=== PATIENT | male | born 1975 | race American Indian/Alaskan Native ===

== ENCOUNTER 2022-02-03 23:43 | Emergency (ER) | payer BC ==
[2022-02-04] MEDS ORDERED: fentaNYL 100 MCG/2 ML INJ IV ONE ×2 (00:10→02:43)
[2022-02-04] MEDS ORDERED: ONDANSETRON 4 MG/2 ML INJ IV ONE (00:11)
[2022-02-04] MEDS ORDERED: SODIUM CHLORIDE 0.9% 1000 ML 1,000 ML IV ONE ×2 (00:14→04:16)
--- NOTE | 2022-02-04 00:17 | Emergency Department Report ---
HPI - General Chief Complaint: Hyperglycemia Time Seen by Provider: 02/04/22 00:02 - [facility] HPI: Room 7 The patient is a 46-year-old male present with chief complaint of bilateral foot pain. Patient states he has had pain in the soles of his feet and toes for the past month. Patient states he feels like he is walking on needles at times. Patient denies history of fever or sores on the feet. Patient currently gives his pain a score of 9/10. ED Past Medical Hx - Past Medical History Previous Medical History?: Yes Hx Diabetes: Yes - Surgical History Past Surgical History?: No Additional Surgical History: Eye surgery - Family History Family history: no significant - Social History Smoking Status: Current Every Day Smoker (1/3 pack/day) Substance Use Type: None (Denies illicit drug use) - Medications Home Medications: Home Medications Medication Instructions Recorded Confirmed Last Taken Type Gabapentin 100 mg PO Q8HR #90 capsule 02/04/22 Unknown Rx HYDROcodone/APAP 5-325 [[place]idge 1 - 2 each PO Q6HR PRN #14 tablet 02/04/22 Unknow n Rx 5/325] ED Review of Systems ROS: Stated complaint: LEG PAIN Other details as noted in HPI Constitutional: denies: fever Eyes: denies: eye pain ENT: denies: throat pain Respiratory: no symptoms reported Cardiovascular: denies: chest pain Endocrine: no symptoms reported Gastrointestinal: denies: abdominal pain Genitourinary: denies: dysuria Musculoskeletal: denies: back pain Neurological: paresthesias Physical Exam - Physical Exam Vital Signs: Vital Signs 02/03/22 23:50 Temperature 98 F Pulse Rate 110 H Respiratory 18 Rate Blood Pressure 124/82 O2 Sat by Pulse 99 Oximetry Physical Exam: GENERAL: The patient is well-developed well-nourished male lying on stretcher not appearing to be in acute distress. [] HEENT: Normocephalic. Atraumatic. Extraocular motions are intact. NECK: Supple. Trachea midline CHEST/LUNGS: There is no respiratory distress noted. HEART/CARDIOVASCULAR: Regular. There is no tachycardia. 2+ DPs bilaterally SKIN: There is no rash. There is no edema. There is no diaphoresis. NEURO: The patient is awake, alert, and oriented. The patient is cooperative. The patient has no focal neurologic deficits. The patient has normal speech. GCS 15 There is no evidence of acute injury. ED Course Vital Signs 02/03/22 23:50 Temperature 98 F Pulse Rate 110 H Respiratory 18 Rate Blood Pressure 124/82 O2 Sat by Pulse 99 Oximetry - Reevaluation(s) Reevaluation #1: 02/04/22 04:03 D stick 271 ED Medical Decision Making - Lab Data Result diagrams: 02/04/22 00:32 02/04/22 00:32 Laboratory Tests 02/04/22 02/04/22 02/04/22 00:32 00:32 00:32 WBC 8.4 RBC 4.79 Hgb 13.6 Hct 40.1 MCV 84 MCH 28 MCHC 34 RDW 12.9 L Plt Count 283 Lymph % (Auto) 39.3 H Winston % (Auto) 4.5 Eos % (Auto) 1.0 Baso % (Auto) 0.5 Lymph # (Auto) 3.3 Winston # (Auto) 0.4 Eos # (Auto) 0.1 Baso # (Auto) 0.0 Seg Neutrophils % 54.7 Seg Neutrophils # 4.6 VBG pH 7.387 Sodium 130 L Potassium 4.6 Chloride 90.8 L Carbon Dioxide 26 Anion Gap 18 BUN 25 H Creatinine 1.1 Estimated GFR > 60 BUN/Creatinine Ratio 23 Glucose 563 H* Calcium 9.4 - Differential Diagnosis Neuropathy, DKA, hyperglycemia Critical care attestation.: If time is entered above; I have spent that time in minutes in the direct care of this critically ill patient, excluding procedure time. ED Disposition Clinical Impression: Peripheral neuropathy, Hyperglycemia Disposition: HOME / SELF CARE / HOMELESS Is pt being admited?: No Does the pt Need Aspirin: No Condition: Stable Instructions: Peripheral Neuropathy, Hyperglycemia, [id number] Additional Instructions: Return to the emergency department should you develop worsening symptoms, inability to tolerate food or liquids, high fever or any other concerns Prescriptions: Gabapentin 100 mg PO Q8HR #90 capsule HYDROcodone/APAP 5-325 [Cl[place]idge 5/325] 1 - 2 each PO Q6HR PRN #14 tablet PRN Reason: Pain Referrals: JOSEPH WHITE MD [Staff Physician] - 3-5 Days (Dr. White is a neurologist. Please follow-up with him for further evaluation) Time of Disposition: 05:14
[2022-02-04 00:51] LABS: Basophils % (Auto) 0.5 % (0.0-1.8); Eosinophils # (Auto) 0.1 K/mm3 (0.0-0.4); Hematocrit 40.1 % (35.5-45.6); Hemoglobin 13.6 gm/dl (11.8-15.2); Lymphocytes # (Auto) 3.3 K/mm3 (1.2-5.4); Lymphocytes % (Auto) 39.3 % (13.4-35.0); Mean Corpuscular HGB Conc 34 % (32-34); Mean Corpuscular Volume 84 fl (84-94); Monocytes # (Auto) 0.4 K/mm3 (0.0-0.8); Monocytes % (Auto) 4.5 % (0.0-7.3); Platelet Count 283 K/mm3 (140-440); Red Blood Count 4.79 M/mm3 (3.65-5.03); Red Cell Distribution Width 12.9 % (13.2-15.2)
[2022-02-04 01:08] LABS: BUN/Creatinine Ratio 23; Blood Urea Nitrogen 25 mg/dL (9-20); Calcium 9.4 mg/dL (8.4-10.2); Hemolysis Index 1
[2022-02-04] MEDS ORDERED: INSULIN REGULAR, HUMAN 100 UNITS/1 ML IV ONE (01:45)
[2022-02-04] MEDS ORDERED: DEXTROSE 50% IN WATER (25GM) 50 ML SYRINGE IV ONE (04:08)
[2022-02-04] MEDS ORDERED: SODIUM CHLORIDE 0.9% 1000 ML 1,000 ML ONE (04:11)
[2022-02-04 04:55] VITALS: BP 89/58
== END 2022-02-04 05:49 | disposition home or self-care (01) ==
LOC: ED 23:43
DX: G62.9 Polyneuropathy, unspecified (principal); E11.65 Type 2 diabetes mellitus with hyperglycemia; F17.200 Nicotine dependence, unspecified, uncomplicated
CPT/HCPCS: 36415; 80048; 82805; 82962; 85025; 96361; 96374; 96375; 96376; 99284; J2405; J3010; J3490; J7030; Q9967; J1815